=== PATIENT | female | born 1985 | race Hispanic/Latino ===

== ENCOUNTER 2018-08-02 06:28 | Day surgery (SDC) | payer OTHER ==
[2018-07-28 09:58] VITALS: BMI 31.4
[2018-08-02 07:01] VITALS: RESP 18
[2018-08-02] MEDS ORDERED: MethylPREDNISolone Depo 40 mg/ml Inj ONE (07:07)
[2018-08-02] MEDS ORDERED: Bupivacaine 0.5% Inj(30mL) ONE (07:08)
[2018-08-02] MEDS ORDERED: Midazolam 2 MG/2 ML VIAL ONE (07:16)
[2018-08-02] MEDS ORDERED: Succinylcholine Chloride 20 mg/ml Syr (5 ml) IV ONE (07:17)
[2018-08-02] MEDS ORDERED: Lidocaine 4% (Laryng-O-Jet) Kit MM ONE (07:17)
[2018-08-02] MEDS ORDERED: Propofol 10 mg/ml Inj (20 ML) ONE (07:17)
[2018-08-02] MEDS ORDERED: Rocuronium 10 mg/ml (5 ml) ONE (07:17)
--- NOTE | 2018-08-02 07:27 | CP.SDSHP ---
Same Day Surgery H & P - History Proposed Procedure: Right knee arthroscopy Pre-Op Diagnosis: Right knee meniscal tear - Previous Medical/Surgical History Pain: 4.Moderate Pain Previous Surgical History: denies - Allergies Allergies: Allergies No Known Allergies Allergy (Verified 07/28/18 10:00) - Current Medications Current Medications: none - Physical Exam General Appearance: NAD Vital Signs: Vital Signs 08/02/18 08/02/18 06:57 07:00 Temperature 98.1 F Pulse Rate 85 85 Respiratory 18 Rate Blood Pressure 122/69 O2 Sat by Pulse 100 Oximetry Mental Status: Alert & Oriented x3 Neuro: WNL Heart: WNL Lungs: WNL GI: WNL - {Optional Preform as Required} Abdomen: WNL Integument: WNL Ortho: Other (R knee: medial joint line tenderness, gross NVI distally, calves soft NT) - Impression Impression: Patient is a 32 y/o female who presents for elective R knee arthroscopy after failing conservative means. She has had daily pain which has prompted her to seek surgical intervention. Risks/benefits/alternatives were explained to the patient who understands and agrees to proceed with procedure. Pt. Evaluated Today:Candidate for Anesthesia & Procedure: Yes - Date & Time Date: 08/02/18 Time: 07:10 Short Stay Discharge - Short Stay Discharge Admitting Diagnosis/Reason for Visit: S83.231A/ S89.90XA/ S83.2710/ S83.511A/ Disposition: HOME/ ROUTINE Medications: oxyCODONE/Acetaminophen [Percocet 5/325 mg Tab] 2 ea PO Q6 PRN #30 tab PRN Reason: Pain, Severe (8-10)
[2018-08-02] MEDS ORDERED: Bupivacaine 0.25%-Epinephrine 1:200,000 (30 ml) Inj ONE (07:37)
[2018-08-02] MEDS ORDERED: Dexamethasone 4 mg/1 ml ONE (08:23)
[2018-08-02] MEDS ORDERED: Lidocaine 1% Inj (20ml) ONE (08:38)
[2018-08-02] MEDS ORDERED: Lidocaine 1% Inj (20ml) IJ ONE (08:45)
[2018-08-02] MEDS ORDERED: Bacitracin OINT 15GM TOP ONE (09:25)
[2018-08-02] MEDS ORDERED: Neostigmine 1:1000 (1 mg/ml) Inj ONE (09:32)
[2018-08-02] MEDS ORDERED: Lactated Ringer's 1,000 ML IV ONE (10:13)
[2018-08-02] MEDS: HYDROmorphone 0.5 mg/0.5 ml ISec IVP PRN ×3 (10:16→10:35)
[2018-08-02] MEDS ORDERED: Dexamethasone 4 mg/1 ml IVP PRN (10:19)
[2018-08-02] MEDS ORDERED: HYDROmorphone 0.5 mg/0.5 ml ISec ONE ×2 (10:20→10:26)
--- NOTE | 2018-08-02 10:22 | PCM.ANESB3 ---
Femoral Nerve Block - Femoral Nerve Block Date of Procedure: 08/02/18 Anesthesiologist: Sebastian Palencia Pre-Procedure Diagnosis: Right partial ACL tear and partial meniscal tear Post-Procedure Diagnosis: Same Procedure Performed: Femoral Nerve Block Right - Procedure Femoral Nerve Block: The procedure was explained to the patient that it is for the post-operative pain management. Consent was obtained after a thorough discussion with the patient regarding the benefits and possible complications of local anesthetic block of the femoral nerve at the inguinal crease area. The patient was brought to the operating room and standard monitors were applied. Time-out was held with the circulating nurse to confirm the correct surgery and the appropriate block. After completion of the surgery under general anesthesia, patient was placed in supine position with fully extended lower extremities and the __RIGHT_ groin exposed. The femoral artery was then carefully palpated. The ultrasound transducer was then applied to this area in the transverse plane and the femoral nerve was visualized lateral to the femoral artery and underneath the fascia iliaca. After thorough identification, the inguinal crease area was prepped with Chloraprep solution three times. At this point, a #22 gauge Stimuplex 2-inch needle was inserted immediately lateral to the femoral artery pulse at the inguinal crease and advanced perpendicularly. The needle was inserted to the ultrasound transducer in-plane towards the femoral nerve in a [id number]-wy-[id number] direction. Needle advancement was performed carefully under direct ultrasound visualization. After negative aspiration, __5___cc of __0.25___% __bupivacaine with [id number] epinpehrine was injected and this was followed with _25_ cc of the same anesthetic. Under ultrasound guidance the local anesthetics were observed spreading below fascia iliaca and around the femoral nerve. The needle was removed intact and sterile dressing was applied. The patient had stable vital signs, was conscious and in no apparent distress. The patient tolerated the femoral nerve block well with stable vital signs, extubated in the operating room, and was taken to the recovery room without complications.
[2018-08-02] MEDS ORDERED: Oxycodone/Acetaminophen 5/325 mg Tab PO PRN ×2 (10:36)
--- NOTE | 2018-08-02 10:56 | PCM.SURG1 ---
Surgeon's Initial Post Op Note - Surgeon's Notes Surgeon: [employer] Outreach Coordinator: ELEANOR Lange Type of Anesthesia: General Endo, Block Regional Anesthesia Administered By: DR vazquez Pre-Operative Diagnosis: tear ACL. tear meincus (lateral). excessive lateral patella pressure syndrome Operative Findings: partial tear ACL. tear medial/tear lateral meniscus. excessive lateral patella pressure syndrome. tricompartmental synovitis Post-Operative Diagnosis: as above Operation Performed: arthroscopic repasirt ACL partial rupeture. arthroscopic lateral patella relase. arthroscopic partial medial/lateral meniscecrtomy. arthroscopic tricomparmtnetal synovectomy Specimen/Specimens Removed: synovium/cartilage Estimated Blood Loss: EBL {In ML}: 5 Blood Products Given: N/A Drains Used: No Drains Post-Op Condition: Fair Date of Surgery/Procedure: 08/02/18 Time of Surgery/Procedure: 08:45 (me isidro in room 7:53/anaestheisa indcution time 752)
[2018-08-02] MEDS: Lactated Ringer's 1,000 ML IV SCH ×2 (11:00→13:11)
[2018-08-02 13:13] VITALS: O2SAT 99
[2018-08-02 15:43] VITALS: BP 118/89; PULSE 96; TEMP 97.9
--- NOTE | 2018-08-02 17:26 | OP ---
PROCEDURE DATE: 08/02/2018 PREOPERATIVE DIAGNOSIS: 1. Internal derangement of the right knee. 2. Partial tear of the anterior cruciate ligament of the right knee. 3. Excessive lateral patellar pressure syndrome, right knee. 4. Tear of medial meniscus and tear of lateral meniscus, right knee. 5. Tricompartmental synovitis. POSTOPERATIVE DIAGNOSES: 1. Internal derangement of the right knee. 2. Partial tear of the anterior cruciate ligament of the right knee. 3. Excessive lateral patellar pressure syndrome, right knee. 4. Tear of medial meniscus and tear of lateral meniscus, right knee. 5. Tricompartmental synovitis. OPERATION PERFORMED: 1. Arthroscopic repair/reconstruction of anterior cruciate ligament, right knee. 2. Arthroscopic lateral patellar retinacular release, right knee. 3. Arthroscopic partial medial and lateral meniscectomy, right knee. 4. Arthroscopic tricompartmental synovectomy. SURGEON: Deric Howard MD MOTOR PATROL OPERATOR: Jaja Hoyos, certified registered nursing first cook. ANESTHESIA: General endotracheal anesthesia and regional block was accomplished. ANESTHESIA ADMINISTERED BY: Sheldon Palencia MD SPECIMENS REMOVED: Synovium and cartilage. ESTIMATED BLOOD LOSS: 5 mL. BLOOD PRODUCTS: No blood products given. DRAINS: No drains. POSTOPERATIVE CONDITION: Stable. TIME OF PROCEDURE: 08:45 incision time, time in the room 07:53, anesthesia induction time 07:53. OPERATIVE INDICATION: Candice Reynoso is a 32-year-old woman who is complaining of right knee pain and restricted range of motion for over a year. The patient had been under the care of Dr. Garcia and was treated conservatively. The patient had no improvement. The differential diagnosis included patellar instability. MRI examination and workup revealed evidence of a partial tear of the anterior cruciate ligament with tears of the lateral meniscus primarily. At surgery, there was found to be a tear of the medial and lateral meniscus. The patient had failed conservative management. CT scan defined the fact that there was no gross instability, but there was excessive lateral patellar pressure syndrome on MRI. Pros, cons, risks, and benefits of surgical approach were discussed at length with the patient in the office through a culturally competent food quality tester. The possibility of a surgical reconstruction and meniscectomy were discussed. The possibility of mechanical failure, infection, thromboembolic disease, stiffness, nerve injury, secondary or tertiary surgery was discussed. Informed consent was again obtained in the holding area prior to surgery this morning through the culturally competent food quality tester with a video network program manager. This was well documented. OPERATIVE PROCEDURE: After having obtained informed consent in the above fashion, after having identified the side, site and procedure, and a critical pause/time-out, after the satisfactory induction of the anesthetic, the patient identified as Candice Reynoso in the supine position with all bony prominences well padded. The right lower extremity was prepped and free draped in usual fashion for lower extremity surgery. The tourniquet had been applied, but was not yet inflated. The lateral approach was employed as well. This having been accomplished, the joint was insufflated from anterolateral portal using #18 gauge spinal needle, followed by #11 blade, followed by spreading, followed by introduction of blunt trocar. With the arthroscope anterolaterally, triangulation was accomplished using #18 gauge spinal needle, followed by #11 blade, followed by spreading, followed by introduction of blunt trocar. With the arthroscope anterolaterally, a careful partial tricompartmental synovectomy was accomplished in all three compartments both to improve visualization and to ablate irritative tissue. There was found to be evidence of exuberant synovitis in all three compartments. At this point in time, there was found to be a tear of the inner free edge of the medial meniscus, tear of the inner free edge of the lateral meniscus with no evidence of peripheral separation. There was evidence of a partial tear of the anterior cruciate ligament, specifically the posterolateral band which was concordant with the MRI findings. Through a central portal using #18 gauge spinal needle, followed by #11 blade, followed by spreading with the arthroscope anterolaterally, careful partial tricompartmental synovectomy was completed and bleeding points were controlled with the arthroscopic wand. At this point in time, with the surgeon exerting a varus stress with the knee in [id number]-[id number] position, the lateral compartment was exposed to advantage. Initially, the medial compartment was exposed and there was found to be tear of the inner free edge of the medial meniscus. With the arthroscope anterolaterally, with the surgeon exerting a gentle valgus stress, there was found to be a tear of the inner free edge of the medial meniscus. Using a combination of straight-biting basket forceps and the left-biting basket forceps, a partial arthroscopic medial meniscectomy was accomplished. There was found to be a tear of the anterior horn as well. There was found to be no gross chondral damage, but there was found to be aforementioned tear of the anterior cruciate ligament. With the arthroscope now anterolaterally, with the knee in [id number] position, there was found to be a tear of the lateral meniscus extending from the mid aspect of the anterior horn. Again, with the arthroscope anterolaterally using a combination of the straight-biting basket forceps and the right-biting basket forceps, a partial lateral meniscectomy was accomplished. The inner free edge was smoothed using the arthroscopic wand. The resection was carried out to the mid aspect favoring the posterior horn as well and a smooth, careful partial lateral meniscectomy was completed. Again, this having no evidence of chondral damage in the compartment. With the patellofemoral joint exposed, there was found to be an extensive amount of synovitis and again a partial tricompartmental synovectomy was completed using the arthroscopic Catarino shaver and the arthroscopic wand for hemostasis. There was found to be evidence of excessive lateral patellar pressure syndrome and some contracture of the lateral retinaculum. With the arthroscope anterolaterally, a third portal having been accomplished anterocentrally, using #18 gauge spinal needle, followed by #11 blade, followed by spreading, with the arthroscope anterolaterally, there was found to be a tear of the posterolateral band of the anterior cruciate ligament. With the arthroscope anterolaterally using the arthroscopic bur, the medial wall of the lateral femoral condyle was carefully osteotomized/an osteoplasty was performed using the arthroscopic bur. This was carried back to the intercondylar notch past the so-called resident ridge. This was smoothed carefully using the arthroscopic bur with great care taken not to compromise the cruciate ligament. Again, there was found to be an A-shaped notch. This was converted using the arthroscopic bur and the osteoplasty was carried out. The notchplasty was carried out posteriorly. This having been accomplished with the arthroscope anterolaterally through the anteromedial portal, the Arthrex repair using the arthroscopic synch technique of the anterior cruciate ligament as described by was accomplished. Using the arthroscopic scorpion, the synch having been placed, the posterolateral band was grasped with the synch and this was bunnelled up the anterior cruciate ligament with sequential firing of the scorpion. This was brought back proximally and successful Meghann type suture having been described using the scorpion was accomplished. This having been accomplished, a secondary FiberWire stretch of FiberTape in the synch luggage tag type of configuration was employed for a second Meghann up the anterior cruciate ligament. The two free ends were brought out the medial portal. The reinforcement of the anterior cruciate ligament and repair was found to be excellent. The tensile strength was found to be excellent. With the knee approximately 15 degrees short of terminal extension, the arthroscopic guidewire was introduced into the anatomic footprint of the anterior cruciate ligament. This was drilled in, sequential reaming was carried out to approximately 30 mm. This having been accomplished, reaming having been accomplished, it should be noted that the drilling was accomplished with the knee in approximately 95 degrees of flexion. The screw was introduced, the SwiveLock anchor was introduced with the knee 15 degrees short of terminal extension. Again, the guidewire having been introduced with the knee at approximately 95 degrees of flexion, sequential reaming to 30 mm over that, the two free ends of the Meghann type suture which was grasped, the anterior cruciate ligament loaded into the SwiveLock anchor. With the knee in approximately 15 to 20 degrees short of terminal extension, the SwiveLock anchor was introduced into the drill hole, impacted and advanced using the SwiveLock technique. This having been accomplished, the sutures were removed. Careful partial tricompartmental synovectomy was completed. Bleeding points were controlled using the arthroscopic wand. This having been accomplished, notchplasty having been accomplished, medial and lateral meniscectomies having been accomplished, attention was now turned to the excessive lateral patellar syndrome. With the arthroscope anterolaterally, with the knee extended using the arthroscopic wand, a partial lateral patellar retinacular release was accomplished. Great care was taken to offer hemostasis and not to make the patella completely unstable. Thus, a partial lateral patellar retinacular release was accomplished. The patella lateral retinacular release having been accomplished with the arthroscopic wand, bleeding points were controlled with the arthroscopic wand. Partial tricompartmental synovectomy was completed using the shaver and the arthroscopic wand. The wound was thoroughly irrigated. Closures in layers with interrupted Vicryl and nylon. Postoperative block was accomplished by Dr. Palencia. Jan Miramontes compression dressing and knee immobilizer was applied. Deric Howard MD [facility] # [id number]
--- NOTE | 2018-08-03 08:16 | OP ---
PROCEDURE DATE: 08/02/2018 TIME OF SURGERY: Incision time 8:45, time in the room 7:52, anesthesia induction time 7:52. PREOPERATIVE DIAGNOSES: 1. Painful right knee, refractory to conservative management by a prior orthopedic surgeon. 2. Internal derangement of the right knee. POSTOPERATIVE DIAGNOSES: 1. Tear anterior cruciate ligament, right knee. 2. Excessive lateral patellar pressure syndrome. 3. Tear, medial and lateral meniscus. OPERATION PERFORMED: 1. Arthroscopic anterior cruciate ligament repair/reconstruction. 2. Arthroscopic lateral patellar retinacular release. 3. Arthroscopic partial medial and lateral meniscectomy. 4. Arthroscopic partial tricompartmental synovectomy. 5. Application of Jan Miramontes compression dressing and knee immobilizer. OPERATIVE FINDINGS: 1. Partial tear, anterior cruciate ligament. 2. Excessive lateral patellar pressure syndrome. 3. Tear, medial meniscus; tear, lateral meniscus. 4. Tricompartmental synovitis. ESTIMATED BLOOD LOSS: Approximately 5 mL. BLOOD PRODUCTS: No blood products given. DRAINS: No drains. POSTOPERATIVE CONDITION: Stable. SPECIMENS REMOVED: Synovium, cartilage. OPERATIVE INDICATIONS: Candice Reynoso is a 32-year-old woman, who has had persistent knee pain for over a year. The patient has had persistent right knee pain and restricted range of motion for over a year. The patient was treated by , the patient had no improvement. The treating doctor had retired, the patient presented for evaluation. MRI examination was accomplished, which revealed evidence of: 1. An excessive lateral patellar pressure syndrome. 2. Partial tear of the ACL posterolateral band. 3. Tear of the lateral meniscus. Pros, cons, risks, and benefits of surgical approach were discussed at length with the patient. The patient has had over a year of conservative management, and the patient actually presented for a surgical option. Pros, cons, risks, and benefits of arthroscopic surgery were discussed. The findings were discussed at length in the office through a culturally competent vp scientific affairs, and informed consent was obtained in the holding area, again with the presence of the video culturally competent vp scientific affairs. The possibility of mechanical failure, infection, thromboembolic disease, possibility of secondary or tertiary surgery was discussed. The patient can no longer withstand the discomfort, and wished for the surgery to be accomplished. DESCRIPTION OF PROCEDURE: After having obtained informed consent in the above fashion, after having identified side, site, and procedure, and a critical pause/time-out, after the satisfactory induction of the anesthetic, the patient identified as Candice Reynoso in the supine position with all bony prominences well padded, the lower extremity was prepped and free draped in the usual fashion for lower extremity surgery. Deric Howard MD
== END 2018-08-02 15:40 | disposition home or self-care (01) ==
LOC: H.OPSURG 06:28
PROVIDERS: ATTEND Orthopaedic Surgery
DX: M23.8X1 Other internal derangements of right knee (principal)
CPT/HCPCS: 29876; 29880; 29888; 97116; 97161; C1713; G8978; G8979; J0171; J0690; J1100; J1170; J2001; J2250; J2405; J2704; J2710; J3010; J7030; J7120